=== PATIENT | male | born 1985 | race Caucasian/White ===

== ENCOUNTER 2017-03-31 12:43 | Inpatient (IN) | payer OTHER ==
[2017-03-31] VITALS (11 sets, daily range): BP systolic 84–103; BP diastolic 45–56; PULSE 90–110; RESP 17–24; TEMP 98.4–100; O2SAT 93–100
[~2017-03-31] VITALS: Ht 182.9 cm; Wt 90.8 kg
[~2017-03-31 12:43] MED LIST: LACTATED RINGER'S 1000 ML INJ 1,000 ML IV ONE; LIDOCAINE HCL 1% PF 5 ML SYRINGE OTHER ONE; PROPOFOL 200 MG/20 ML AMP IV ONE; ceFAZolin INJ 1,000 MG VIAL IV ONE
[2017-03-31] MEDS ORDERED: IOHEXOL 350 MG/ML 10 ML VIAL (for RAD DIAG) IVCONTRAST ONE (13:19)
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
[2017-03-31 13:35] LABS: AUTOMATED NEUTROPHIL # 26.5 TH/MM3 (1.8-7.7); BASOPHIL # 0.1 TH/MM3 (0-0.2); BASOPHIL % 0.2 % (0.0-2.0); HEMATOCRIT 38.7 % (39.0-51.0); HEMOGLOBIN 13.4 GM/DL (13.0-17.0); LYMPH % 4.6 % (9.0-44.0); LYMPHOCYTE # 1.4 TH/MM3 (1.0-4.8); MEAN CELL VOLUME 84.7 FL (80.0-100.0); MEAN CORPUSCULAR HEMOGLOBIN 29.4 PG (27.0-34.0); MEAN CORPUSCULAR HGB CONC 34.7 % (32.0-36.0); MEAN PLATELET VOLUME 7.6 FL (7.0-11.0); MONO % 7.7 % (0.0-8.0); MONOCYTE # 2.3 TH/MM3 (0-0.9); NEUT % 87.5 % (16.0-70.0); PLATELET COUNT 346 TH/MM3 (150-450); RED BLOOD COUNT 4.57 MIL/MM3 (4.50-5.90); RED CELL DISTRIBUTION WIDTH 12.9 % (11.6-17.2); WHITE BLOOD COUNT 30.3 TH/MM3 (4.0-11.0)
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
[2017-03-31 13:51] LABS: PROTHROMBIN TIME - PATIENT 11.2 SEC (9.8-11.6)
[2017-03-31 13:52] LABS: INTERNATIONAL NORMALIZED RATIO 1.1 RATIO
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
[2017-03-31 14:19] LABS: BANDS 21 % (0-6); LYMPHOCYTES 8 % (9-44); MONOCYTES 7 % (0-8); NEUTROPHIL # MANUAL DIFF 25.8 TH/MM3 (1.8-7.7); POLYS (SEG NEUTROPHILS) 64 % (16-70)
[2017-03-31] MEDS ORDERED: BISACODYL 10 MG SUPP RECTAL PRN (14:45)
[2017-03-31] MEDS ORDERED: MAGNESIUM HYDROXIDE SUSP 30 ML CUP PO PRN (14:45)
[2017-03-31] MEDS ORDERED: ONDANSETRON HCL 4 MG/2 ML VIAL IV PUSH PRN (14:45)
[2017-03-31] MEDS ORDERED: LACTULOSE SYRUP 20 GM/30 ML CUP PO PRN (14:45)
[2017-03-31] MEDS ORDERED: CHLORHEXIDINE GLUCONATE 2 % 1 PACK (2 CLOTHS) TOP PRN (14:45)
[2017-03-31] MEDS ORDERED: SODIUM CHLORIDE 0.9% FLUSH 10 ML FLUSH IV FLUSH PRN (14:45)
[2017-03-31] MEDS ORDERED: MISCELLANEOUS NURSING INFORMATION XX SCH (14:45)
[2017-03-31] MEDS ORDERED: SENNOSIDES 8.6 MG TAB PO PRN (14:45)
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
[2017-03-31] MEDS ORDERED: fentaNYL DRIP 250 ML IV PRN (15:00)
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
[2017-03-31] MEDS: SODIUM CHLOR 0.9% 1000 ML INJ 1,000 ML IV SCH ×3 (16:00→21:53)
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
[2017-03-31] MEDS ORDERED: SODIUM CHLOR 0.9% 1000 ML INJ 1,000 ML IV SCH (18:30)
[2017-03-31] MEDS ORDERED: ceFAZolin INJ 1,000 MG VIAL IV ONE (19:00)
[2017-03-31 19:11] LABS: HEMATOCRIT 38.9 % (39.0-51.0); HEMOGLOBIN 13.5 GM/DL (13.0-17.0)
[2017-03-31] MEDS ORDERED: BUPIVACAINE/EPINEPHRINE 0.25% PF 30 ML VIAL ONE (19:53)
--- NOTE | 2017-03-31 20:19 | HHI.PR ---
Immediate Post Op Note Procedure Date: Mar 31, 2017 Pre Op Diagnosis: right acetabulum fracture with femoral protrusio Post Op Diagnosis: same Surgeon: Vira Zhang [employer]metics Supervisor(s): none Procedure: Insertion right femoral traction pin Complications: none Specimen(s) removed: none Estimated blood loss: none Anesthesia: Conscious Sedation Drains: None Patient to: PACU Patient Condition: Good Implant/Devices: SEE IMPLANT LOG (if applicable) Vira Zhang MD Mar 31, 2017 20:19
[2017-03-31] MEDS ORDERED: DO NOT ADM ANY ANTICOAGULANT DRUGS PRN (20:24)
[2017-03-31] MEDS: SODIUM CHLORIDE 0.9% FLUSH 10 ML FLUSH IV FLUSH SCH (21:00)
[2017-03-31] MEDS: DOCUSATE SODIUM 50 MG/SENNA 8.6 MG TAB PO SCH (21:00)
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
[2017-03-31] MEDS: FAMOTIDINE 20 MG/2 ML VIAL IV PUSH SCH (22:29)
--- NOTE | 2017-03-31 23:36 | RADRPT ---
EXAM DATE/TIME: 03/31/2017 20:55 [facility] COMPARISON: CT ABDOMEN & PELVIS W CONTRAST, March 31, 2017, 13:19. INDICATIONS : Post reduction. Right hip traction in place. MEDICAL HISTORY : None. SURGICAL HISTORY : None. ENCOUNTER: Initial ACUITY: 1 day PAIN SCORE: 0/10 LOCATION: Right hip. FINDINGS: Single frontal view of the right hip in traction demonstrates 1.3 cm separation of the acetabular fra cture and superior displacement of the medial acetabulum 1.2 cm. 2 bony fragment superimposed upon t he superior femoral head which was shown on CT to be posterior in location. CONCLUSION: Comminuted and displaced acetabular fracture in traction. Lev Padron MD on March 31, 2017 at 23:31 Board Certified Radiologist. This report was verified electronically.
[2017-03-31 23:57] LABS: HEMATOCRIT 34.5 % (39.0-51.0); HEMOGLOBIN 11.7 GM/DL (13.0-17.0)
[2017-04-01] VITALS (14 sets, daily range): BP systolic 94–116; BP diastolic 50–61; PULSE 80–92; RESP 19–25; TEMP 98.4–98.9; O2SAT 90–100
[2017-04-01] MEDS: CHLORHEXIDINE GLUCONATE 2 % 1 PACK (2 CLOTHS) TOP SCH (04:00)
--- NOTE | 2017-04-01 05:19 | RADRPT ---
EXAM DATE/TIME: 04/01/2017 04:07 [facility] COMPARISON: CHEST SINGLE AP, March 31, 2017, 13:11. INDICATIONS : Evaluate left sided pneumothorax MEDICAL HISTORY : None. SURGICAL HISTORY : None. ENCOUNTER: Subsequent ACUITY: 2 days PAIN SCORE: 4/10 LOCATION: Left chest FINDINGS: A single view of the chest demonstrates the lungs to be symmetrically aerated without evidence of mas s, infiltrate or effusion. The cardiomediastinal contours are unremarkable. Osseous structures are intact. CONCLUSION: No acute disease. No pneumothorax is seen. Antonio Avila MD on April 01, 2017 at 5:17 Board Certified Radiologist. This report was verified electronically.
[2017-04-01 06:13] LABS: AUTOMATED NEUTROPHIL # 8.3 TH/MM3 (1.8-7.7); BASOPHIL % 0.2 % (0.0-2.0); EOSINOPHIL % 0.1 % (0.0-4.0); HEMATOCRIT 35.7 % (39.0-51.0); HEMOGLOBIN 12.2 GM/DL (13.0-17.0); LYMPHOCYTE # 1.4 TH/MM3 (1.0-4.8); MEAN CELL VOLUME 85.3 FL (80.0-100.0); MEAN CORPUSCULAR HEMOGLOBIN 29.2 PG (27.0-34.0); MEAN CORPUSCULAR HGB CONC 34.2 % (32.0-36.0); MEAN PLATELET VOLUME 7.7 FL (7.0-11.0); MONO % 7.6 % (0.0-8.0); MONOCYTE # 0.8 TH/MM3 (0-0.9); NEUT % 79.1 % (16.0-70.0); PLATELET COUNT 182 TH/MM3 (150-450); RED BLOOD COUNT 4.18 MIL/MM3 (4.50-5.90); RED CELL DISTRIBUTION WIDTH 13.3 % (11.6-17.2); WHITE BLOOD COUNT 10.5 TH/MM3 (4.0-11.0)
[2017-04-01 06:32] LABS: BICARBONATE 24.3 MEQ/L (21.0-32.0); CALCIUM 7.7 MG/DL (8.5-10.1); CREATININE 0.77 MG/DL (0.60-1.30)
--- NOTE | 2017-04-01 06:57 | RADRPT ---
EXAM DATE/TIME: 03/31/2017 13:19 [facility] COMPARISON: No previous studies available for comparison. INDICATIONS : Trauma, evaluate right hip fracture. RADIATION DOSE: ; Reconstructed from previous dataset, no dose MEDICAL HISTORY : None SURGICAL HISTORY : None. ENCOUNTER: Initial ACUITY: 1 day PAIN SCALE: Non-responsive LOCATION: Right hip. TECHNIQUE: Volumetric scanning of the hip was performed. Using automated exposure control and adjustment of the mA and/or kV according to patient size, radiation dose was kept as low as reasonably achievable to o btain optimal diagnostic quality images. DICOM format image data is available electronically for rev iew and comparison. FINDINGS: BONES: There is fracturing of the right acetabulum. This includes fracturing of the superior medial aspect o f the central acetabulum. There is also fracturing of the superior lateral acetabulum. The right femu r is intact. There is fracturing of the superior and inferior pubic rami on the left. The fracture ex tends into the pubic symphysis on the left. There is fracturing of the left side of the sacrum.. JOINTS: No evidence of joint narrowing or effusion. SOFT TISSUES: Muscles, tendons and neurovascular structures are grossly unremarkable. No evidence of mass, organize d fluid collection, or foreign body. CONCLUSION: 1. Fracturing of the right acetabulum. 2. Fracturing of the superior and inferior iliac rami on the left. 3. Fracturing of the left side of sacrum. Antonio Avila MD on April 01, 2017 at 6:50 Board Certified Radiologist. This report was verified electronically.
--- NOTE | 2017-04-01 06:58 | RADRPT ---
EXAM DATE/TIME: 03/31/2017 13:19 [facility] COMPARISON: No previous studies available for comparison. INDICATIONS : Trauma, evaluate right hip fracture. ; Reconstructed from previous dataset, no dose MEDICAL HISTORY : None SURGICAL HISTORY : None. ENCOUNTER: Initial ACUITY: 1 day PAIN SCALE: Non-responsive LOCATION: Right hip. TECHNIQUE: 3D reconstructions of the pelvis were performed. DICOM format image data is available electronically for review and comparison. FINDINGS: Again noted is the fracture of the right acetabulum with medial central displacement of the femur. Th e right femur is intact. There is fracturing of the superior inferior pubic rami on the left. Retract ion of the upper left sacrum. CONCLUSION: Pelvic fractures. Antonio Avila MD on April 01, 2017 at 6:55 Board Certified Radiologist. This report was verified electronically.
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
[2017-04-01] MEDS: SODIUM CHLORIDE 0.9% FLUSH 10 ML FLUSH IV FLUSH SCH ×2 (09:00→21:51)
[2017-04-01] MEDS: DOCUSATE SODIUM 50 MG/SENNA 8.6 MG TAB PO SCH ×2 (09:00→21:00)
[2017-04-01] MEDS: FAMOTIDINE 20 MG/2 ML VIAL IV PUSH SCH ×2 (10:13→21:52)
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
[2017-04-01] MEDS: LIDOCAINE HCL 5% PATCH T-DERMAL SCH (11:39)
[2017-04-01] MEDS: ACETAMINOPHEN 1000 MG/100 ML 100 ML IV SCH ×2 (11:39→18:26)
[2017-04-01] MEDS: METHOCARBAMOL 500 MG TAB PO SCH ×2 (14:07→21:52)
[2017-04-01] MEDS: MORPHINE SULFATE 2 MG/ML INJ IV PUSH PRN (14:13)
[2017-04-01] MEDS: SODIUM CHLOR 0.9% 1000 ML INJ 1,000 ML IV SCH (14:33)
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
[2017-04-02] VITALS (8 sets, daily range): BP systolic 101–125; BP diastolic 57–63; PULSE 76–106; RESP 16–25; TEMP 98.2–98.6; O2SAT 94–98
[2017-04-02] MEDS: ACETAMINOPHEN 1000 MG/100 ML 100 ML IV SCH ×2 (00:06→05:20)
[2017-04-02] MEDS ORDERED: SODIUM CHLORID 0.9% 500 ML IV PRN (00:15)
[2017-04-02] MEDS ORDERED: LACTATED RINGER'S 1000 ML IV PRN (00:15)
[2017-04-02] MEDS ORDERED: CHLORHEXIDINE GLUCONATE 2 % 1 PACK (2 CLOTHS) TOPICAL PRN (00:15)
[2017-04-02] MEDS ORDERED: POVIDONE IODINE 5% (ANTISEPSIS KIT) 4 APPLICATIONS EACH NARE PRN (00:15)
[2017-04-02] MEDS ORDERED: METOPROLOL TARTRATE 25 MG TAB PO PRN (00:15)
[2017-04-02] MEDS: MORPHINE SULFATE 2 MG/ML INJ IV PUSH PRN ×3 (00:16→10:07)
[2017-04-02] MEDS: SODIUM CHLOR 0.9% 1000 ML INJ 1,000 ML IV SCH ×2 (02:28→05:53)
[2017-04-02] MEDS: CHLORHEXIDINE GLUCONATE 2 % 1 PACK (2 CLOTHS) TOP SCH (02:53)
[2017-04-02] MEDS: METHOCARBAMOL 500 MG TAB PO SCH ×3 (05:03→21:29)
[2017-04-02 05:42] LABS: AUTOMATED NEUTROPHIL # 6.1 TH/MM3 (1.8-7.7); BASOPHIL % 0.5 % (0.0-2.0); EOSINOPHIL # 0.1 TH/MM3 (0-0.4); EOSINOPHIL % 1.3 % (0.0-4.0); HEMATOCRIT 32.2 % (39.0-51.0); HEMOGLOBIN 11.5 GM/DL (13.0-17.0); LYMPH % 18.5 % (9.0-44.0); LYMPHOCYTE # 1.6 TH/MM3 (1.0-4.8); MEAN CELL VOLUME 83.5 FL (80.0-100.0); MEAN CORPUSCULAR HEMOGLOBIN 29.8 PG (27.0-34.0); MEAN CORPUSCULAR HGB CONC 35.6 % (32.0-36.0); MEAN PLATELET VOLUME 7.7 FL (7.0-11.0); MONO % 8.6 % (0.0-8.0); MONOCYTE # 0.7 TH/MM3 (0-0.9); NEUT % 71.1 % (16.0-70.0); PLATELET COUNT 181 TH/MM3 (150-450); RED BLOOD COUNT 3.85 MIL/MM3 (4.50-5.90); RED CELL DISTRIBUTION WIDTH 12.9 % (11.6-17.2); WHITE BLOOD COUNT 8.6 TH/MM3 (4.0-11.0)
[2017-04-02 05:52] LABS: PROTHROMBIN TIME - PATIENT 10.3 SEC (9.8-11.6)
[2017-04-02 06:08] LABS: ALBUMIN 2.7 GM/DL (3.4-5.0); AST (GOT) 44 U/L (15-37); BICARBONATE 26.9 MEQ/L (21.0-32.0); BLOOD UREA NITROGEN 10 MG/DL (7-18); CALCIUM 8.2 MG/DL (8.5-10.1); CHLORIDE 105 MEQ/L (98-107); CREATININE 0.75 MG/DL (0.60-1.30); GLOMERULAR FILTRATION RATE 121 ML/MIN (>89); GLUCOSE,RANDOM 81 MG/DL (74-106); SODIUM (NA) 138 MEQ/L (136-145)
[2017-04-02 06:10] LABS: ALT (GPT) 33 U/L (12-78)
[2017-04-02 06:13] LABS: ALKALINE PHOSPHATASE 59 U/L (45-117); TOTAL BILIRUBIN ADULT 0.9 MG/DL (0.2-1.0); TOTAL PROTEIN 6.2 GM/DL (6.4-8.2)
--- NOTE | 2017-04-02 06:19 | RADRPT ---
EXAM DATE/TIME: 04/02/2017 04:15 [facility] COMPARISON: CT THORAX W CONTRAST, March 31, 2017, 13:19. CHEST SINGLE AP, April 01, 2017, 4:07. INDICATIONS : Follow up post trauma alert. MEDICAL HISTORY : None. SURGICAL HISTORY : None. ENCOUNTER: Subsequent ACUITY: 3 days PAIN SCORE: Non-responsive. LOCATION: Bilateral chest FINDINGS: A single view of the chest demonstrates the lungs to be symmetrically aerated without evidence of mas s, infiltrate or effusion. The cardiomediastinal contours are unremarkable. Osseous structures are intact. CONCLUSION: No acute disease. Antonio Todd MD on April 02, 2017 at 6:15 Board Certified Radiologist. This report was verified electronically.
[2017-04-02] MEDS ORDERED: VANCOMYCIN HCL 1000 MG VIAL ONE (06:45)
[2017-04-02] MEDS ORDERED: SODIUM CHLOR 0.9% 250 ML INJ 250 ML ONE (06:45)
[2017-04-02] MEDS ORDERED: GENTAMICIN SULFATE 80 MG/2 ML VIAL ONE (06:45)
[2017-04-02] MEDS ORDERED: HEPARIN SODIUM - SQ 10,000 UNITS/ML VIAL ONE (06:45)
[2017-04-02] MEDS ORDERED: SODIUM CHLORIDE 0.9% IV SCH (08:00)
[2017-04-02] MEDS ORDERED: TRANEXAMIC ACID IV SCH (08:00)
[2017-04-02] MEDS: DOCUSATE SODIUM 50 MG/SENNA 8.6 MG TAB PO SCH ×2 (09:00→21:29)
[2017-04-02] MEDS: SODIUM CHLORIDE 0.9% FLUSH 10 ML FLUSH IV FLUSH SCH ×2 (09:20→21:30)
[2017-04-02] MEDS: FAMOTIDINE 20 MG/2 ML VIAL IV PUSH SCH ×2 (09:20→21:29)
[2017-04-02] MEDS: LIDOCAINE HCL 5% PATCH T-DERMAL SCH (09:21)
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
[2017-04-02] MEDS ORDERED: ONDANSETRON HCL 4 MG/2 ML VIAL IV ONE (12:00)
[2017-04-02] MEDS ORDERED: PROPOFOL 200 MG/20 ML AMP IV ONE (12:00)
[2017-04-02] MEDS ORDERED: DEXAMETHASONE SOD PHOS 4 MG/ML VIAL IV ONE (12:00)
[2017-04-02] MEDS ORDERED: ROCURONIUM INJ 50 MG/5 ML SYRINGE IV PUSH ONE (12:00)
[2017-04-02] MEDS ORDERED: PHENYLEPH/NS 1000 MCG/10 ML SYR IV ONE (12:00)
[2017-04-02] MEDS ORDERED: NEOSTIGMINE 5 MG/5 ML SYRINGE IV PUSH ONE (12:00)
[2017-04-02] MEDS ORDERED: LIDOCAINE HCL 1% PF 5 ML SYRINGE OTHER ONE (12:00)
[2017-04-02] MEDS ORDERED: ceFAZolin 2 GM PREMIX 50 ML ONE (14:02)
[2017-04-02 16:20] LABS: HEMATOCRIT 25.8 % (39.0-51.0); HEMOGLOBIN 8.9 GM/DL (13.0-17.0)
[2017-04-02] MEDS ORDERED: HYDROmorphone HCL PF 2 MG/ML VIAL ONE (16:31)
--- NOTE | 2017-04-02 16:47 | PD.ORT.PN ---
Subjective Subjective Remarks POD 0 s/p ORIF right acetabulum fx stable in pacu Objective Vitals Vital Signs Date Time Temp Pulse Resp B/P (MAP) Pulse Ox O2 Delivery O2 Flow Rate FiO2 04/02/17 10:07 98 04/02/17 10:00 87 04/02/17 08:00 94 04/02/17 08:00 98.6 82 16 101/57 (72) 95 04/02/17 07:00 94 Room Air 04/02/17 06:00 85 04/02/17 05:52 19 04/02/17 05:52 19 04/02/17 04:00 95 04/02/17 04:00 98.2 95 25 106/59 (75) 98 04/02/17 02:00 78 04/02/17 00:00 76 04/02/17 00:00 98.5 76 18 102/57 (72) 97 04/01/17 22:57 18 04/01/17 22:00 88 04/01/17 20:00 85 04/01/17 20:00 98.9 85 19 94/59 (71) 94 04/01/17 19:38 95 21 04/01/17 19:00 92 Nasal Cannula 2.00 04/01/17 18:00 91 I/O 04/01/17 04/01/17 04/01/17 04/02/17 04/02/17 04/02/17 07:00 15:00 23:00 07:00 15:00 23:00 Intake Total 240 ml 3398 ml Output Total 700 ml 2400 ml 700 ml 600 ml Balance -700 ml -2160 ml 2698 ml -600 ml Intake Oral 240 ml 480 ml IV Total 2918 ml Output Urine Total 700 ml 2400 ml 700 ml 600 ml # Bowel Movements 0 0 0 Result Diagram: 04/02/17 1607 04/02/17 0449 Other Results Laboratory Tests Test 04/02/17 04:49 Prothromb Time International Ratio 1.0 RATIO Prothrombin Time 10.3 SEC (9.8-11.6) Imaging Last 24 hours Impressions Chest X-Ray 04/02/17 0600 Signed Impressions: Service Date/Time: Sunday, April 02, 2017 04:15 - CONCLUSION: No acute disease. Antonio Todd MD Objective Remarks RLE: Dressings clean and dry. intact. +drain Assessment & Plan Assessment and Plan 1) Right Acetabulum Fx s/p ORIF - POD 0 -TTWB -daily dressing changes POD 2 -DVT prophylaxis with lovenox. DC with Xarelto -pain control -DC drain POD 2 with first dressing change -plan for referral to radiology for XRT to prevent Heterotopic ossification -CM for rehab options -plan for DC to rehab when stable -f/u with [facility] or [facility] in 2 weeks 2) Right Scapular Fx - nonop -sling -NWB Kenny Dunham/Director Learning [facility] Apr 02, 2017 16:47
[2017-04-02] MEDS ORDERED: ASPI-183 PO (16:50)
[2017-04-02] MEDS ORDERED: XARE10TA PO (16:50)
[2017-04-02] MEDS ORDERED: WHEEMIS3 (16:50)
[2017-04-02] MEDS ORDERED: ENDO10TA8 PO (16:50)
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
[2017-04-02] MEDS ORDERED: MISCELLANEOUS NURSING INFORMATION XX PRN (17:30)
[2017-04-02] MEDS ORDERED: MISCELLANEOUS PHARMACY INFORMATION XX ONE (17:30)
[2017-04-02] MEDS ORDERED: MORPHINE SULFATE 4 MG/ML INJ IV PUSH PRN (17:30)
[2017-04-02] MEDS ORDERED: NALOXONE HCL 0.4 MG/ML AMP IV PUSH PRN (17:30)
--- NOTE | 2017-04-02 18:07 | RADRPT ---
EXAM DATE/TIME: 04/02/2017 17:06 [facility] COMPARISON: No previous studies available for comparison. INDICATIONS : Orif right acetabulum. MEDICAL HISTORY : Acetabular fracture. SURGICAL HISTORY : None. ENCOUNTER: Subsequent ACUITY: 1 week PAIN SCORE: Non-responsive. LOCATION: Right Acetabulum. FINDINGS: 5 views are recorded digitally in the operating room using C-arm during placement of acetabular plate and hardware. CONCLUSION: Intraoperative images. Lev Padron MD on April 02, 2017 at 18:04 Board Certified Radiologist. This report was verified electronically.
[2017-04-02] MEDS ORDERED: DO NOT ADM ANY ANTICOAGULANT DRUGS PRN (18:20)
[2017-04-02] MEDS: LACTATED RINGER'S 1000 ML INJ 1,000 ML IV SCH (18:30)
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
[2017-04-02] MEDS: MORPHINE SULFATE 30 MG/30 ML PCA IV SCH ×2 (19:15→23:11)
[2017-04-02] MEDS: KETOROLAC TROMETHAMINE 30 MG/ML (IVP) VIAL IVP SCH (21:29)
[2017-04-02] MEDS: ceFAZolin 2 GM PREMIX 50 ML IV SCH (21:30)
[2017-04-02] MEDS: PCA - TOTAL MG MORPHINE DELIVERED PER SHIFT SCH (22:00)
--- NOTE | 2017-04-02 22:42 | EKG ---
Date Performed: 04/02/2017 Time Performed: 03:55:42 PTAGE: 31 years EKG: Possible ectopic atrial rhythm. Borderline ECG NO PREVIOUS TRACING DOCTOR: Robbie Larkin Interpretating Date/Time 04/02/2017 22:41:24
[2017-04-03] VITALS: BP 119/60; PULSE 103; RESP 16; TEMP 98.6; O2SAT 98
[2017-04-03] MEDS: VANCOMYCIN INJ 1,000 MG in SODIUM CHLOR 0.9% 250 ML INJ 250 ML IV SCH ×2 (02:01→13:56)
[2017-04-03] MEDS: ACETAMINOPHEN/HYDROcodone 325 MG/10 MG TAB PO PRN ×2 (02:42→20:28)
[2017-04-03] MEDS: CHLORHEXIDINE GLUCONATE 2 % 1 PACK (2 CLOTHS) TOP SCH (04:00)
[2017-04-03 05:15] LABS: AUTOMATED NEUTROPHIL # 7.8 TH/MM3 (1.8-7.7); BASOPHIL % 0.2 % (0.0-2.0); EOSINOPHIL % 0.1 % (0.0-4.0); HEMATOCRIT 26.1 % (39.0-51.0); HEMOGLOBIN 9.2 GM/DL (13.0-17.0); LYMPHOCYTE # 1.2 TH/MM3 (1.0-4.8); MEAN CELL VOLUME 83.5 FL (80.0-100.0); MEAN CORPUSCULAR HEMOGLOBIN 29.4 PG (27.0-34.0); MEAN CORPUSCULAR HGB CONC 35.2 % (32.0-36.0); MEAN PLATELET VOLUME 7.4 FL (7.0-11.0); MONOCYTE # 0.8 TH/MM3 (0-0.9); NEUT % 79.7 % (16.0-70.0); PLATELET COUNT 194 TH/MM3 (150-450); RED BLOOD COUNT 3.13 MIL/MM3 (4.50-5.90); RED CELL DISTRIBUTION WIDTH 12.8 % (11.6-17.2); WHITE BLOOD COUNT 9.8 TH/MM3 (4.0-11.0)
[2017-04-03] MEDS: LACTATED RINGER'S 1000 ML INJ 1,000 ML IV SCH ×3 (05:20→22:51)
[2017-04-03] MEDS: ceFAZolin 2 GM PREMIX 50 ML IV SCH ×3 (05:21→22:51)
[2017-04-03] MEDS: METHOCARBAMOL 500 MG TAB PO SCH ×3 (05:22→22:51)
[2017-04-03] MEDS: KETOROLAC TROMETHAMINE 30 MG/ML (IVP) VIAL IVP SCH ×3 (05:22→20:28)
[2017-04-03 05:34] LABS: ALBUMIN 2.1 GM/DL (3.4-5.0); BICARBONATE 26.9 MEQ/L (21.0-32.0); CALCIUM 7.2 MG/DL (8.5-10.1); CREATININE 0.63 MG/DL (0.60-1.30)
[2017-04-03 05:38] LABS: CALCIUM-PROTEIN CORRECTED 8.3 MG/DL (8.5-10.1); TOTAL BILIRUBIN ADULT 0.6 MG/DL (0.2-1.0); TOTAL PROTEIN 5.1 GM/DL (6.4-8.2)
[2017-04-03] MEDS: PCA - TOTAL MG MORPHINE DELIVERED PER SHIFT SCH ×3 (05:57→22:00)
--- NOTE | 2017-04-03 06:39 | RADRPT ---
EXAM DATE/TIME: 04/03/2017 06:00 [facility] COMPARISON: CHEST SINGLE AP, April 02, 2017, 4:15. INDICATIONS : Follow up trauma. Respiratory status. MEDICAL HISTORY : None. SURGICAL HISTORY : None. ENCOUNTER: Subsequent ACUITY: 3 days PAIN SCORE: 6/10 LOCATION: Bilateral chest FINDINGS: Mild parenchymal opacity at the left lung base. Right lung is grossly clear. Cardiac contours are sat isfactory. CONCLUSION: Mild left lung base parenchymal opacity. Antonio Todd MD on April 03, 2017 at 6:37 Board Certified Radiologist. This report was verified electronically.
[2017-04-03 08:00] VITALS: BP 101/62; PULSE 101; RESP 18; TEMP 98.9; O2SAT 96
[2017-04-03] MEDS: DOCUSATE SODIUM 50 MG/SENNA 8.6 MG TAB PO SCH ×2 (08:59→20:31)
[2017-04-03] MEDS: INDOMETHACIN 75 MG CONTROLLED RELEASE CAP PO SCH (08:59)
[2017-04-03] MEDS: SODIUM CHLORIDE 0.9% FLUSH 10 ML FLUSH IV FLUSH SCH ×2 (09:00→20:32)
[2017-04-03] MEDS: LIDOCAINE HCL 5% PATCH T-DERMAL SCH (09:01)
[2017-04-03] MEDS: FAMOTIDINE 20 MG TAB PO SCH ×2 (09:03→20:31)
[2017-04-03] MEDS: MAGNESIUM HYDROXIDE SUSP 30 ML CUP PO SCH ×2 (09:04→20:31)
[2017-04-03] MEDS: LACTULOSE SYRUP 20 GM/30 ML CUP PO SCH (09:04)
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
[2017-04-03 12:00] VITALS: BP 103/63; PULSE 93; RESP 18; TEMP 98.6; O2SAT 96
[2017-04-03 12:04] VITALS: O2SAT 93
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
--- NOTE | 2017-04-03 14:50 | PD.ORT.PN ---
Subjective Post Op Day #: 1 Subjective Remarks The patient is resting in bed in NAD. Patient states pain is management and minimal. Objective Vitals Vital Signs Date Time Temp Pulse Resp B/P (MAP) Pulse Ox O2 Delivery O2 Flow Rate FiO2 04/03/17 13:57 16 04/03/17 12:04 93 04/03/17 12:00 98.6 93 18 103/63 (76) 96 04/03/17 08:00 98.9 101 18 101/62 (75) 96 04/03/17 05:58 17 04/03/17 05:57 17 04/03/17 03:22 19 04/03/17 00:00 98.6 103 16 119/60 (79) 98 04/02/17 23:16 17 04/02/17 23:11 16 04/02/17 22:19 Room Air 04/02/17 22:00 14 04/02/17 20:00 98.4 106 17 125/63 (83) 94 04/02/17 19:15 22 04/02/17 19:00 105 22 121/63 (82) 94 Room Air 04/02/17 18:45 118 26 114/59 (77) 94 Room Air 04/02/17 18:30 109 25 128/64 (85) 99 Simple Mask 8 04/02/17 18:19 98.2 126 20 118/65 (82) 98 Simple Mask 8 I/O 04/02/17 04/02/17 04/02/17 04/03/17 04/03/17 04/03/17 07:00 15:00 23:00 07:00 15:00 23:00 Intake Total 3398 ml 7150 ml 1970 ml Output Total 700 ml 600 ml 810 ml 800 ml Balance 2698 ml -600 ml 6340 ml 1170 ml Intake Oral 480 ml 720 ml IV Total 2918 ml 50 ml 1250 ml Autotransfusion 600 ml Other 6500 ml Output Urine Total 700 ml 600 ml 750 ml 750 ml Drainage Total 60 ml 50 ml # Bowel Movements 0 Result Diagram: 04/03/17 0452 04/03/17 0452 Imaging Last 24 hours Impressions Chest X-Ray 04/02/17 0600 Signed Impressions: Service Date/Time: Sunday, April 02, 2017 04:15 - CONCLUSION: No acute disease. Antonio Todd MD Objective Remarks RLE: Dressings clean and dry. intact. +drain + EHL/TA/G, 2+ pedal pulse. + SILT. Knee immobilizer in place RUE: Sling at bedside. Patient moving right wrist and elbow WNLs. 2 + radial pulse. Abrasions to right shoulder. Assessment & Plan Ortho Post Op Day #: 1 Problem List: Assessment and Plan 1) Right Acetabulum Fx s/p ORIF - POD 1 -TTWB -daily dressing changes POD 2 -DVT prophylaxis with lovenox. DC with Xarelto -pain control -DC drain POD 2 with first dressing change -plan for referral to radiology for XRT to prevent Heterotopic ossification. Consult placed today for radiation oncology for XRT likely on Wednesday. -CM for rehab options -plan for DC to rehab when stable -f/u with [facility] or [facility] in 2 weeks 2) Right Scapular Fx - nonop -sling -NWB Jamel Mustafa Apr 03, 2017 14:50
[2017-04-03 16:00] VITALS: BP 114/66; PULSE 105; RESP 18; TEMP 98.2; O2SAT 97
[2017-04-03] MEDS: ENOXAPARIN SODIUM 30 MG/0.3 ML SYRINGE SQ SCH (17:51)
[2017-04-03 20:50] VITALS: BP 111/68; PULSE 98; RESP 18; TEMP 99.4; O2SAT 96
[2017-04-04 00:12] VITALS: BP 110/61; PULSE 99; RESP 18; TEMP 98.6; O2SAT 96
[2017-04-04] MEDS: VANCOMYCIN INJ 1,000 MG in SODIUM CHLOR 0.9% 250 ML INJ 250 ML IV SCH ×2 (02:58→16:09)
[2017-04-04 04:30] VITALS: BP 108/59; PULSE 98; RESP 18; TEMP 98.3; O2SAT 96
[2017-04-04] MEDS: PCA - TOTAL MG MORPHINE DELIVERED PER SHIFT SCH (06:00)
[2017-04-04 06:11] LABS: AUTOMATED NEUTROPHIL # 5.2 TH/MM3 (1.8-7.7); BASOPHIL % 0.4 % (0.0-2.0); EOSINOPHIL # 0.1 TH/MM3 (0-0.4); EOSINOPHIL % 1.1 % (0.0-4.0); HEMATOCRIT 22.3 % (39.0-51.0); HEMOGLOBIN 7.8 GM/DL (13.0-17.0); LYMPH % 15.2 % (9.0-44.0); MEAN CELL VOLUME 83.4 FL (80.0-100.0); MEAN CORPUSCULAR HEMOGLOBIN 29.2 PG (27.0-34.0); MEAN CORPUSCULAR HGB CONC 35.1 % (32.0-36.0); MEAN PLATELET VOLUME 7.4 FL (7.0-11.0); MONO % 7.6 % (0.0-8.0); MONOCYTE # 0.5 TH/MM3 (0-0.9); NEUT % 75.7 % (16.0-70.0); PLATELET COUNT 204 TH/MM3 (150-450); RED BLOOD COUNT 2.67 MIL/MM3 (4.50-5.90); WHITE BLOOD COUNT 6.9 TH/MM3 (4.0-11.0)
--- NOTE | 2017-04-04 06:22 | RADRPT ---
EXAM DATE/TIME: 04/04/2017 04:38 [place] COMPARISON: CHEST SINGLE AP, April 03, 2017, 6:00. INDICATIONS : Follow up trauma. Respiratory status. MEDICAL HISTORY : None. SURGICAL HISTORY : Orif right acetabulum. ENCOUNTER: Subsequent ACUITY: 4 - 6 days PAIN SCORE: Non-responsive. LOCATION: Bilateral chest FINDINGS: Mild bibasilar infiltrates appear roughly stable. Cardiac contours are unchanged. CONCLUSION: No significant change Antonio Todd MD on April 04, 2017 at 6:20 Board Certified Radiologist. This report was verified electronically.
[2017-04-04 06:32] LABS: ALBUMIN 2.1 GM/DL (3.4-5.0); ALT (GPT) 50 U/L (12-78); AST (GOT) 172 U/L (15-37); BICARBONATE 27.2 MEQ/L (21.0-32.0); BLOOD UREA NITROGEN 10 MG/DL (7-18); CALCIUM 7.6 MG/DL (8.5-10.1); CHLORIDE 107 MEQ/L (98-107); CREATININE 0.59 MG/DL (0.60-1.30); GLOMERULAR FILTRATION RATE 160 ML/MIN (>89); GLUCOSE,RANDOM 99 MG/DL (74-106); SODIUM (NA) 142 MEQ/L (136-145)
[2017-04-04] MEDS: ENOXAPARIN SODIUM 30 MG/0.3 ML SYRINGE SQ SCH ×2 (06:33→16:09)
[2017-04-04] MEDS: ceFAZolin 2 GM PREMIX 50 ML IV SCH ×3 (06:33→21:28)
[2017-04-04 06:34] LABS: ALKALINE PHOSPHATASE 48 U/L (45-117); TOTAL BILIRUBIN ADULT 0.7 MG/DL (0.2-1.0); TOTAL PROTEIN 5.2 GM/DL (6.4-8.2)
[2017-04-04] MEDS: METHOCARBAMOL 500 MG TAB PO SCH ×3 (06:34→21:31)
[2017-04-04] MEDS: KETOROLAC TROMETHAMINE 30 MG/ML (IVP) VIAL IVP SCH ×2 (06:34→16:10)
[2017-04-04] MEDS ORDERED: POTASSIUM CHLORIDE 25 MEQ EFFERVESCENT TAB PO ONE (06:45)
[2017-04-04 08:00] VITALS: BP 97/54; PULSE 91; RESP 18; TEMP 98.9; O2SAT 95
--- NOTE | 2017-04-04 08:20 | PD.ORT.PN ---
Subjective Subjective Remarks Laying in bed, appears comfortable but states his pain is mild-moderate at rest and substantial with any movement. He notes moderate back and right groin pain. He states his shoulder is sore and he is very tired. He is from [place] and [facility]. Objective Vitals Vital Signs Date Time Temp Pulse Resp B/P (MAP) Pulse Ox O2 Delivery O2 Flow Rate FiO2 04/04/17 04:30 98.3 98 18 108/59 (75) 96 04/04/17 00:12 98.6 99 18 110/61 (77) 96 04/03/17 20:50 99.4 98 18 111/68 (82) 96 04/03/17 16:00 98.2 105 18 114/66 (82) 97 04/03/17 14:57 16 04/03/17 13:57 16 04/03/17 12:04 93 04/03/17 12:00 98.6 93 18 103/63 (76) 96 I/O 04/03/17 04/03/17 04/03/17 04/04/17 04/04/17 04/04/17 07:00 15:00 23:00 07:00 15:00 23:00 Intake Total 1970 ml 600 ml 240 ml 240 ml Output Total 800 ml 700 ml 600 ml Balance 1170 ml -100 ml 240 ml -360 ml Intake Oral 720 ml 600 ml 240 ml 240 ml IV Total 1250 ml Output Urine Total 750 ml 700 ml 600 ml Drainage Total 50 ml # Bowel Movements 0 1 Result Diagram: 04/04/17 0500 04/04/17 0500 Imaging Last 24 hours Impressions Chest X-Ray 04/02/17 0600 Signed Impressions: Service Date/Time: Sunday, April 02, 2017 04:15 - CONCLUSION: No acute disease. Antonio Todd MD Objective Remarks Laying in bed Wearing TLSO brace NAD RLE Hip/Pelvis dressing intact, mild drainage (drain dc'd), mild swelling thigh though supple Distal motor +ehl, +sens, +nvi, neg homans RUE Sling right arm, Motor +right wrist flex/extension, Radial pulse 2/4, Abrasions to right shoulder. Assessment & Plan Ortho Post Op Day #: 2 Problem List: Assessment and Plan 1) Right Acetabulum Fx s/p ORIF - POD 2 -TTWB -daily dressing changes beginning today. Drain dc'd. -DVT prophylaxis with lovenox. DC with Xarelto -PO pain control - Hg 7.8. May need transfusion is drops tomorrow. - XRT Referral was placed Sat 04/03 and apparently scheduled for today. -CM for rehab options. He believes he does have travelers insurance as he is from [place]. -plan for DC to rehab when stable -f/u with [facility] or [facility] in 2 weeks 2) Right Scapular Fx - nonop -sling -NWB Neuro treating T5 and T7 fracture. Continue TLSO as directed. Aisha Luciano Apr 04, 2017 08:20
[2017-04-04] MEDS: LIDOCAINE HCL 5% PATCH T-DERMAL SCH (08:40)
[2017-04-04] MEDS: LACTULOSE SYRUP 20 GM/30 ML CUP PO SCH (08:40)
[2017-04-04] MEDS: DOCUSATE SODIUM 50 MG/SENNA 8.6 MG TAB PO SCH ×2 (08:40→21:31)
[2017-04-04] MEDS: MAGNESIUM HYDROXIDE SUSP 30 ML CUP PO SCH ×2 (08:40→21:31)
[2017-04-04] MEDS: INDOMETHACIN 75 MG CONTROLLED RELEASE CAP PO SCH (08:40)
[2017-04-04] MEDS: ACETAMINOPHEN/HYDROcodone 325 MG/10 MG TAB PO PRN ×2 (08:40→13:00)
[2017-04-04] MEDS: FAMOTIDINE 20 MG TAB PO SCH ×2 (08:40→21:31)
[2017-04-04] MEDS: SODIUM CHLORIDE 0.9% FLUSH 10 ML FLUSH IV FLUSH SCH ×2 (08:53→21:29)
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
[2017-04-04 12:00] VITALS: BP 105/63; PULSE 88; RESP 18; TEMP 98.3; O2SAT 97
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
[2017-04-04 16:00] VITALS: BP 96/60; PULSE 87; RESP 18; TEMP 97.7; O2SAT 98
[2017-04-04 20:58] VITALS: BP 118/71; PULSE 92; RESP 18; TEMP 97.3; O2SAT 98
[2017-04-05 00:32] VITALS: BP 107/69; PULSE 90; RESP 18; TEMP 97; O2SAT 96
[2017-04-05 04:12] VITALS: BP 120/69; PULSE 94; RESP 18; TEMP 98.7; O2SAT 98
[2017-04-05] MEDS: ENOXAPARIN SODIUM 30 MG/0.3 ML SYRINGE SQ SCH ×2 (05:46→17:55)
[2017-04-05] MEDS: ceFAZolin 2 GM PREMIX 50 ML IV SCH ×2 (05:46→14:32)
[2017-04-05] MEDS: METHOCARBAMOL 500 MG TAB PO SCH ×3 (05:46→22:12)
[2017-04-05 06:07] LABS: BICARBONATE 25.6 MEQ/L (21.0-32.0); CALCIUM 7.8 MG/DL (8.5-10.1); CREATININE 0.47 MG/DL (0.60-1.30)
[2017-04-05 06:48] LABS: AUTOMATED NEUTROPHIL # 5.1 TH/MM3 (1.8-7.7); BASOPHIL % 0.5 % (0.0-2.0); EOSINOPHIL # 0.1 TH/MM3 (0-0.4); EOSINOPHIL % 1.2 % (0.0-4.0); HEMATOCRIT 22.8 % (39.0-51.0); HEMOGLOBIN 8.2 GM/DL (13.0-17.0); LYMPH % 16.1 % (9.0-44.0); LYMPHOCYTE # 1.1 TH/MM3 (1.0-4.8); MEAN CELL VOLUME 84.8 FL (80.0-100.0); MEAN CORPUSCULAR HEMOGLOBIN 30.6 PG (27.0-34.0); MEAN PLATELET VOLUME 7.7 FL (7.0-11.0); MONO % 6.8 % (0.0-8.0); MONOCYTE # 0.5 TH/MM3 (0-0.9); NEUT % 75.4 % (16.0-70.0); PLATELET COUNT 226 TH/MM3 (150-450); RED BLOOD COUNT 2.69 MIL/MM3 (4.50-5.90); RED CELL DISTRIBUTION WIDTH 13.1 % (11.6-17.2); WHITE BLOOD COUNT 6.8 TH/MM3 (4.0-11.0)
[2017-04-05 06:49] LABS: MEAN CORPUSCULAR HGB CONC 36.1 % (32.0-36.0)
[2017-04-05 08:00] VITALS: BP 115/69; PULSE 94; RESP 17; TEMP 98.8; O2SAT 98
[2017-04-05] MEDS: INDOMETHACIN 75 MG CONTROLLED RELEASE CAP PO SCH (08:16)
[2017-04-05] MEDS: LACTULOSE SYRUP 20 GM/30 ML CUP PO SCH (08:17)
[2017-04-05] MEDS: MAGNESIUM HYDROXIDE SUSP 30 ML CUP PO SCH ×2 (08:17→22:12)
[2017-04-05] MEDS: ACETAMINOPHEN/HYDROcodone 325 MG/10 MG TAB PO PRN (08:17)
[2017-04-05] MEDS: FAMOTIDINE 20 MG TAB PO SCH ×2 (08:17→22:12)
[2017-04-05] MEDS: SODIUM CHLORIDE 0.9% FLUSH 10 ML FLUSH IV FLUSH SCH ×2 (08:17→22:12)
[2017-04-05] MEDS: LIDOCAINE HCL 5% PATCH T-DERMAL SCH (08:18)
[2017-04-05] MEDS: DOCUSATE SODIUM 50 MG/SENNA 8.6 MG TAB PO SCH ×2 (08:18→22:12)
[2017-04-05 12:00] VITALS: BP 123/70; PULSE 83; RESP 18; TEMP 98; O2SAT 98
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
--- NOTE | 2017-04-05 15:13 | PD.ORT.PN ---
Subjective Subjective Remarks No new issues. Objective Vitals Vital Signs Date Time Temp Pulse Resp B/P (MAP) Pulse Ox O2 Delivery O2 Flow Rate FiO2 04/05/17 12:00 98.0 83 18 123/70 (87) 98 04/05/17 08:24 Room Air 04/05/17 08:00 98.8 94 17 115/69 (84) 98 04/05/17 04:12 98.7 94 18 120/69 (86) 98 04/05/17 00:32 97.0 90 18 107/69 (82) 96 04/04/17 20:58 97.3 92 18 118/71 (87) 98 04/04/17 16:00 97.7 87 18 96/60 (72) 98 I/O 04/04/17 04/04/17 04/04/17 04/05/17 04/05/17 04/05/17 07:00 15:00 23:00 07:00 15:00 23:00 Intake Total 240 ml 720 ml 240 ml 240 ml Output Total 600 ml 600 ml 600 ml Balance -360 ml 720 ml -360 ml -360 ml Intake Oral 240 ml 720 ml 240 ml 240 ml Output Urine Total 600 ml 600 ml 600 ml # Voids 4 # Bowel Movements 1 0 2 2 Result Diagram: 04/05/175 04/05/17 0445 Imaging Last 24 hours Impressions Chest X-Ray 04/02/17 0600 Signed Impressions: Service Date/Time: Sunday, April 02, 2017 04:15 - CONCLUSION: No acute disease. Antonio Todd MD Objective Remarks Laying in bed Wearing TLSO brace NAD RLE Hip/Pelvis dressing intact, mild drainage (drain dc'd), mild swelling thigh though supple Distal motor +ehl, +sens, +nvi, neg homans RUE Sling right arm, Motor +right wrist flex/extension, Radial pulse 2/4, Abrasions to right shoulder. Assessment & Plan Assessment and Plan 1) Right Acetabulum Fx s/p ORIF - POD 3 -TTWB -daily dressing changes beginning today. -DVT prophylaxis with lovenox. DC with Xarelto -PO pain control - Hg 8.2 - XRT -CM for rehab options. He believes he does have travelers insurance as he is from [place]. -plan for DC to rehab when stable -f/u with [facility] or [place] in 2 weeks 2) Right Scapular Fx - nonop -sling -NWB Neuro treating T5 and T7 fracture. Continue TLSO as directed. Sal Parekh Jr., MD Apr 05, 2017 15:13
[2017-04-05 16:00] VITALS: BP 112/66; PULSE 90; RESP 17; TEMP 97.9; O2SAT 99
[2017-04-05 20:00] VITALS: BP 107/65; PULSE 89; RESP 16; TEMP 99.5; O2SAT 98
[2017-04-06] VITALS: BP 106/62; PULSE 91; RESP 17; TEMP 99.5; O2SAT 96
[2017-04-06] MEDS: METHOCARBAMOL 500 MG TAB PO SCH ×3 (04:45→23:35)
[2017-04-06] MEDS: ENOXAPARIN SODIUM 30 MG/0.3 ML SYRINGE SQ SCH ×2 (04:46→17:46)
[2017-04-06] MEDS: ACETAMINOPHEN/HYDROcodone 325 MG/10 MG TAB PO PRN (04:46)
--- NOTE | 2017-04-06 07:36 | PD.ORT.PN ---
Subjective Subjective Remarks No new issues. pain is controlled Objective Vitals Vital Signs Date Time Temp Pulse Resp B/P (MAP) Pulse Ox O2 Delivery O2 Flow Rate FiO2 04/06/17 00:00 99.5 91 17 106/62 (77) 96 04/05/17 20:00 99.5 89 16 107/65 (79) 98 04/05/17 16:00 97.9 90 17 112/66 (81) 99 04/05/17 12:00 98.0 83 18 123/70 (87) 98 04/05/17 08:24 Room Air 04/05/17 08:00 98.8 94 17 115/69 (84) 98 I/O 04/05/17 04/05/17 04/05/17 04/06/17 04/06/17 04/06/17 07:00 15:00 23:00 07:00 15:00 23:00 Intake Total 290 ml 720 ml 480 ml Output Total 600 ml 500 ml 550 ml Balance -310 ml 220 ml -70 ml Intake Oral 240 ml 720 ml 480 ml IV Total 50 ml Output Urine Total 600 ml 500 ml 550 ml # Voids 3 # Bowel Movements 2 1 Result Diagram: 04/05/175 04/05/17 0445 Imaging Last 24 hours Impressions Chest X-Ray 04/02/17 0600 Signed Impressions: Service Date/Time: Sunday, April 02, 2017 04:15 - CONCLUSION: No acute disease. Antonio Todd MD Objective Remarks Laying in bed Wearing TLSO brace NAD RLE Hip/Pelvis dressing intact, dressing CDI, swelling thigh though supple Distal motor +ehl, +sens, +nvi, neg homans RUE Sling right arm, Motor +right wrist flex/extension, Radial pulse 2/4, Abrasions to right shoulder. Assessment & Plan Assessment and Plan 1) Right Acetabulum Fx s/p ORIF - POD 4 -TTWB -daily dressing changes -DVT prophylaxis with lovenox. DC with Xarelto -PO pain control - XRT -CM for rehab options. He believes he does have travelers insurance as he is from [place]. -plan for DC to rehab when stable -f/u with [facility] or [place] in 2 weeks 2) Right Scapular Fx - nonop -sling -NWB Neuro treating T5 and T7 fracture. Continue TLSO as directed. Denard,Sal Jr. MD Apr 06, 2017 07:36
[2017-04-06 08:00] VITALS: BP 121/65; PULSE 89; RESP 17; TEMP 96.5; O2SAT 99
[2017-04-06] MEDS: FAMOTIDINE 20 MG TAB PO SCH ×2 (08:21→23:35)
[2017-04-06] MEDS: INDOMETHACIN 75 MG CONTROLLED RELEASE CAP PO SCH (08:21)
[2017-04-06] MEDS: LIDOCAINE HCL 5% PATCH T-DERMAL SCH (08:21)
[2017-04-06] MEDS: MAGNESIUM HYDROXIDE SUSP 30 ML CUP PO SCH ×2 (08:23→21:00)
[2017-04-06] MEDS: LACTULOSE SYRUP 20 GM/30 ML CUP PO SCH (08:23)
[2017-04-06] MEDS: SODIUM CHLORIDE 0.9% FLUSH 10 ML FLUSH IV FLUSH SCH ×2 (08:23→21:00)
[2017-04-06] MEDS: DOCUSATE SODIUM 50 MG/SENNA 8.6 MG TAB PO SCH ×2 (08:23→21:00)
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
[2017-04-06 12:00] VITALS: BP 119/67; PULSE 65; RESP 19; TEMP 97.5; O2SAT 99
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
[2017-04-06 16:00] VITALS: BP 118/75; PULSE 86; RESP 16; TEMP 98.9; O2SAT 98
[2017-04-06 23:07] VITALS: BP 109/62; PULSE 101; RESP 18; TEMP 98; O2SAT 98
[2017-04-07 01:07] VITALS: BP 111/78; PULSE 88; RESP 18; TEMP 98.9; O2SAT 97
[2017-04-07] MEDS: ENOXAPARIN SODIUM 30 MG/0.3 ML SYRINGE SQ SCH ×2 (05:00→17:55)
[2017-04-07 05:04] VITALS: BP 116/68; PULSE 86; RESP 18; TEMP 99.1; O2SAT 98
[2017-04-07] MEDS: METHOCARBAMOL 500 MG TAB PO SCH ×3 (06:00→21:25)
[2017-04-07 08:00] VITALS: BP 121/70; PULSE 89; RESP 20; TEMP 98.7; O2SAT 97
[2017-04-07] MEDS: INDOMETHACIN 75 MG CONTROLLED RELEASE CAP PO SCH (08:36)
[2017-04-07] MEDS: DOCUSATE SODIUM 50 MG/SENNA 8.6 MG TAB PO SCH ×2 (08:36→21:00)
[2017-04-07] MEDS: FAMOTIDINE 20 MG TAB PO SCH ×2 (08:36→21:25)
[2017-04-07] MEDS: LIDOCAINE HCL 5% PATCH T-DERMAL SCH (08:37)
[2017-04-07] MEDS: LACTULOSE SYRUP 20 GM/30 ML CUP PO SCH (08:37)
[2017-04-07] MEDS: SODIUM CHLORIDE 0.9% FLUSH 10 ML FLUSH IV FLUSH SCH ×2 (08:37→21:00)
[2017-04-07] MEDS: MAGNESIUM HYDROXIDE SUSP 30 ML CUP PO SCH ×2 (08:37→21:00)
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
[2017-04-07 12:00] VITALS: BP 111/68; PULSE 91; RESP 18; TEMP 98.3; O2SAT 99
[2017-04-07 16:00] VITALS: BP 124/71; PULSE 91; RESP 18; TEMP 97.2; O2SAT 100
[2017-04-07 19:47] VITALS: BP 119/67; PULSE 94; RESP 16; TEMP 98.3; O2SAT 97
[2017-04-08] VITALS: BP 116/66; PULSE 88; RESP 18; TEMP 98.2; O2SAT 97
[2017-04-08 04:04] LABS: AUTOMATED NEUTROPHIL # 4.1 TH/MM3 (1.8-7.7); BASOPHIL % 0.5 % (0.0-2.0); EOSINOPHIL # 0.1 TH/MM3 (0-0.4); EOSINOPHIL % 1.8 % (0.0-4.0); HEMATOCRIT 22.9 % (39.0-51.0); HEMOGLOBIN 8.6 GM/DL (13.0-17.0); LYMPH % 23.7 % (9.0-44.0); LYMPHOCYTE # 1.5 TH/MM3 (1.0-4.8); MEAN CELL VOLUME 83.4 FL (80.0-100.0); MEAN CORPUSCULAR HEMOGLOBIN 31.2 PG (27.0-34.0); MEAN PLATELET VOLUME 6.9 FL (7.0-11.0); MONO % 8.3 % (0.0-8.0); MONOCYTE # 0.5 TH/MM3 (0-0.9); NEUT % 65.7 % (16.0-70.0); PLATELET COUNT 360 TH/MM3 (150-450); RED BLOOD COUNT 2.75 MIL/MM3 (4.50-5.90); RED CELL DISTRIBUTION WIDTH 12.8 % (11.6-17.2); WHITE BLOOD COUNT 6.2 TH/MM3 (4.0-11.0)
[2017-04-08 04:05] LABS: MEAN CORPUSCULAR HGB CONC 37.4 % (32.0-36.0)
[2017-04-08] MEDS: METHOCARBAMOL 500 MG TAB PO SCH ×3 (06:25→21:41)
[2017-04-08] MEDS: ENOXAPARIN SODIUM 30 MG/0.3 ML SYRINGE SQ SCH ×2 (06:25→18:28)
[2017-04-08 08:00] VITALS: BP 120/76; PULSE 79; RESP 16; TEMP 98.8; O2SAT 98
[2017-04-08] MEDS: SODIUM CHLORIDE 0.9% FLUSH 10 ML FLUSH IV FLUSH SCH ×2 (09:00→21:41)
[2017-04-08] MEDS: LACTULOSE SYRUP 20 GM/30 ML CUP PO SCH (09:00)
[2017-04-08] MEDS: DOCUSATE SODIUM 50 MG/SENNA 8.6 MG TAB PO SCH ×2 (09:00→21:40)
[2017-04-08] MEDS: MAGNESIUM HYDROXIDE SUSP 30 ML CUP PO SCH ×2 (09:00→21:40)
[2017-04-08] MEDS: LIDOCAINE HCL 5% PATCH T-DERMAL SCH (10:56)
[2017-04-08] MEDS: FAMOTIDINE 20 MG TAB PO SCH ×2 (10:56→21:41)
[2017-04-08] MEDS: INDOMETHACIN 75 MG CONTROLLED RELEASE CAP PO SCH (10:56)
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
[2017-04-08 12:00] VITALS: BP 119/68; PULSE 98; RESP 16; TEMP 96.8; O2SAT 100
[2017-04-08] MEDS ORDERED: MORPHINE SULFATE 2 MG/ML INJ IV PUSH PRN (15:15)
[2017-04-08 16:35] VITALS: BP 128/75; PULSE 76; RESP 16; TEMP 97.5; O2SAT 100
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
[2017-04-08] MEDS ORDERED: PERI PO (19:55)
[2017-04-08] MEDS ORDERED: MAGN30S PO (19:55)
[2017-04-08 20:00] VITALS: BP 112/68; PULSE 99; RESP 18; TEMP 98; O2SAT 97
[2017-04-09] VITALS: BP 118/62; PULSE 82; RESP 16; TEMP 97.3; O2SAT 98
[2017-04-09] MEDS: METHOCARBAMOL 500 MG TAB PO SCH ×3 (04:54→21:21)
[2017-04-09] MEDS: ENOXAPARIN SODIUM 30 MG/0.3 ML SYRINGE SQ SCH ×2 (04:55→18:15)
[2017-04-09 08:00] VITALS: BP 128/75; PULSE 82; RESP 16; TEMP 97.8; O2SAT 100
[2017-04-09] MEDS: DOCUSATE SODIUM 50 MG/SENNA 8.6 MG TAB PO SCH ×2 (08:31→21:00)
[2017-04-09] MEDS: LIDOCAINE HCL 5% PATCH T-DERMAL SCH (08:31)
[2017-04-09] MEDS: FAMOTIDINE 20 MG TAB PO SCH ×2 (08:31→21:21)
[2017-04-09] MEDS: INDOMETHACIN 75 MG CONTROLLED RELEASE CAP PO SCH (08:31)
[2017-04-09] MEDS: SODIUM CHLORIDE 0.9% FLUSH 10 ML FLUSH IV FLUSH SCH ×2 (08:32→21:00)
[2017-04-09] MEDS: LACTULOSE SYRUP 20 GM/30 ML CUP PO SCH (08:32)
[2017-04-09] MEDS: MAGNESIUM HYDROXIDE SUSP 30 ML CUP PO SCH ×2 (08:32→21:00)
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
[2017-04-09 12:00] VITALS: BP 120/66; PULSE 85; RESP 16; TEMP 96.3; O2SAT 98
[2017-04-09 20:00] VITALS: BP 122/71; PULSE 82; RESP 20; TEMP 97.7; O2SAT 99
[2017-04-10] VITALS: BP 122/76; PULSE 92; RESP 20; TEMP 97.7; O2SAT 98
[2017-04-10 04:00] VITALS: BP 121/69; PULSE 84; RESP 20; TEMP 97.9; O2SAT 100
[2017-04-10] MEDS: ENOXAPARIN SODIUM 30 MG/0.3 ML SYRINGE SQ SCH (05:02)
[2017-04-10] MEDS: METHOCARBAMOL 500 MG TAB PO SCH (05:02)
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
== END 2017-04-10 06:10 | disposition home or self-care (01) | DRG 958 ==
LOC: NEPE 12:43 → NEDA 13:50 → N03A 13:50 → N06B 04-02 19:23
PROVIDERS: ADMIT Surgery; ATTEND Surgery
PROC: 30233N1 Transfusion of Nonautologous Red Blood Cells into Peripheral Vein, Percutaneous Approach (ICD-10-PCS; 2017-03-31)
PROC: 2W6LX0Z Traction of Right Lower Extremity using Traction Apparatus (ICD-10-PCS; 2017-03-31)
PROC: 0QS404Z Reposition Right Acetabulum with Internal Fixation Device, Open Approach (ICD-10-PCS; principal; 2017-04-02 12:43)
DX: S32.461A Displaced associated transverse-posterior fracture of right acetabulum, initial encounter for closed fracture (principal); S27.0XXA Traumatic pneumothorax, initial encounter; S22.051A Stable burst fracture of T5-T6 vertebra, initial encounter for closed fracture; S32.19XA Other fracture of sacrum, initial encounter for closed fracture; I95.9 Hypotension, unspecified; S22.43XA Multiple fractures of ribs, bilateral, initial encounter for closed fracture; S32.591A Other specified fracture of right pubis, initial encounter for closed fracture; S32.592A Other specified fracture of left pubis, initial encounter for closed fracture; S22.061A Stable burst fracture of T7-T8 vertebra, initial encounter for closed fracture; S42.101A Fracture of unspecified part of scapula, right shoulder, initial encounter for closed fracture; R58 Hemorrhage, not elsewhere classified; V97.22XA Parachutist injured on landing, initial encounter; Y93.89 Activity, other specified; Y92.838 Other recreation area as the place of occurrence of the external cause
CPT/HCPCS: 36430; 70450; 71010; 71260; 72072; 72125; 72129; 72132; 72170; 72190; 73501; 73700; 74177; 76000; 76377; 77307; 77334; 77387; 77412; 80048; 80053; 82435; 82565; 82947; 84132; 84295; 84520; 85007; 85014; 85018; 85025; 85027; 85610; 85730; 86850; 86900; 86901; 86920; 87641; 93005; 94150; 94640; 94667; 94668; 99221; 99291; C1713; C1769; E0880; G0390; J0131; J0690; J1100; J1170; J1580; J1644; J1650; J1885; J2270; J2370; J2405; J2710; J3010; J3370; J7030; J7050; J7120; L0484; L1830; P9016; Q9967